=== PATIENT | male | born 1995 | race African-American/Black ===

== ENCOUNTER 2017-11-21 11:27 | Emergency (ER) | payer OTHER ==
[~2017-11-21] VITALS: Ht 190.5 cm; Wt 156.9 kg
[2017-11-21 11:40] VITALS: BP 143/73
--- NOTE | 2017-11-21 12:15 | Emergency Room Report ---
History of Present Illness General Chief Complaint: Upper Respiratory Illness Source: Patient (CHIKI VENEGAS) Present Illness HPI The patient is a 22-year-old male with a history of asthma presenting for cough , wheezing, and fevers for the past 2 days. He states that he was incarcerated 6 months prior and has not been able to followup with his primary doctor. He has not been using his albuterol or any other medications. he denies any known sick contacts or recent travel. He denies any other symptoms including nausea, vomiting, chest pain, hemoptysis , headache, neck pain or stiffness, abdominal pain, rash (CHIKI VENEGAS.[email or web address]) Allergies: Coded Allergies: No Known Allergies (Unverified , 11/21/17) Patient History Past Medical History: see triage record Pertinent Family History: none Reviewed Nursing Documentation: PMH: Agreed, PSxH: Agreed (CHIKI VENEGAS) Nursing Documentation-PMH Past Medical History: No History, Except For Hx Asthma: Yes (CHIKI VENEGAS) Review of Systems All Other Systems: negative except mentioned in HPI (CHIKI VENEGAS.AJoseph) Physical Exam Vital Signs Date Time Temp Pulse Resp B/P (MAP) Pulse Ox O2 Delivery O2 Flow Rate FiO2 11/21/17 11:32 100.4 117 27 143/73 97 Room Air Sp02 EP Interpretation: reviewed, normal General Appearance: no apparent distress, alert, GCS 15, non-toxic Head: normocephalic, atraumatic Eyes: bilateral eye normal inspection, bilateral eye PERRL ENT: hearing grossly normal, normal pharynx, no angioedema, normal voice Neck: full range of motion, supple/symm/no masses Respiratory: chest non-tender, no retraction, no accessory muscle use, wheezing - diffuse Cardiovascular #1: regular rate, rhythm, no edema Musculoskeletal: back normal, gait/station normal, normal range of motion, non- tender Neurologic: alert, oriented x3, responsive, motor strength/tone normal, sensory intact, speech normal Psychiatric: judgement/insight normal, memory normal, mood/affect normal, no suicidal/homicidal ideation Skin: normal color, no rash, warm/dry, well hydrated Lymphatic: no adenopathy (CHIKI VENEGAS) Medical Decision Making PA Attestation Dr. Galaviz is my supervising physician. Patient management was discussed with my supervising physician (CHIKI VENEGAS) Diagnostic Impression: Primary Impression: Bronchitis ER Course The patient is a 22-year-old male with a history of asthma presenting for cough , wheezing, and fevers for the past 2 days Differential diagnoses considered but not limited to: Asthma exacerbation, bronchitis, pneumonia, anxiety Physical exam: Febrile with tachycardia. No apparent distress HEENT exam is unremarkable Lungs: Decreased breath sounds bilaterally with bilat wheezing. Chest is nontender. No respiratory distress. No accessory muscle use. The patient was given a breathing treatment and is feeling much better. Lungs sounds have improved. Patient is discharged home with a prescription for albuterol, cough medication, motrin, and will followup with PMD. ER precautions are given (CHIKI VENEGAS) ER Course I have reviewed the PA's interpretation of Xray results and agree with findings. (Aditya Galaviz M.D.) Chest X-Ray Diagnostic Results Chest X-Ray Diagnostic Results : Chest X-Ray Ordered: Yes # of Views/Limited/Complete: 1 View Indication: Other - cough EP Interpretation: Yes PA Xray: Interpretation reviewed, by supervising MD, and agrees with findings. Interpretation: no consolidation, no effusion, no pneumothorax, no acute cardiopulmonary disease Impression: No acute disease Electronically Signed by: Chiki Venegas PA-C (CHIKI VENEGAS) Last Vital Signs Date Time Temp Pulse Resp B/P (MAP) Pulse Ox O2 Delivery O2 Flow Rate FiO2 11/21/17 11:40 100.4 108 27 143/73 97 Room Air Status: improved (CHIKI VENEGAS P.AJoseph) Disposition: HOME, SELF-CARE Condition: Improved Scripts Albuterol Sulfate* (PROAIR HFA*) 8.5 Gm Hfa.aer.ad 2 PUFFS INH Q6H, #8.5 GM 0 Refills Prov: CHIKI VENEGAS P.A. 11/21/17 D-Methorphan Hb/Prometh Hcl* (PROMETHAZINE-DM SYRUP*) 118 Ml Syrup 5 ML ORAL Q6H Y for For Cough, #118 ML 0 Refills Prov: TERZIANCHIKI P.A. 11/21/17 Ibuprofen* (MOTRIN*) 600 Mg Tablet 600 MG ORAL Q8H Y for For Pain, #30 TAB 0 Refills Prov: CHIKI VENEGAS 11/21/17 CHIKI VENEGAS Nov 21, 2017 12:15 Aditya Galaviz M.D. Nov 23, 2017 13:51
[2017-11-21] MEDS: Ipratropium 0.02% Inh Soln 2.5ml UD HHN SCH ×2 (12:27→12:37)
[2017-11-21] MEDS: Albuterol ud Inhalation HHN SCH ×2 (12:27→12:37)
[2017-11-21] MEDS ORDERED: PROAIR HFA8.5 GM INH (13:43)
[2017-11-21] MEDS ORDERED: PROMETHAZINE-D118 ML ORAL (13:43)
[2017-11-21] MEDS ORDERED: IBUPROFEN600 MG ORAL (13:43)
[2017-11-21 13:58] VITALS: BP 143/73
--- NOTE | 2017-11-21 16:19 | Diagnostic Imaging Report ---
Indication: Cough Technique: XRAY Chest 1v Comparison: None Findings: Low lung volumes artifactually exaggerate heart size and bronchovascular markings. Mediastinal contours are sharp. There is apparent hazy opacity in the right lower lung which may be artifactual and related to bronchovascular crowding. Developing pneumonia is not entirely excluded. There is no pleural effusion or pneumothorax. No acute osseous abnormality is seen. Impression: Limited exam with low lung volumes. Apparent hazy opacity in the right lower lung may be artifactual and related to bronchovascular crowding. Developing pneumonia cannot entirely be excluded. Correlate clinically. Repeat exam with improved inspiratory effort or AP/lateral views recommended as clinically indicated for better evaluation. Unreliable assessment of heart size given low lung volumes. Possible mild cardiomegaly.
== END 2017-11-21 13:58 | disposition home or self-care (01) ==
LOC: EMR 12:03
DX: J20.9 Acute bronchitis, unspecified (principal); J45.909 Unspecified asthma, uncomplicated
CPT/HCPCS: 71010; 94640; 94664; 99284